=== PATIENT | female | born 1960 | race American Indian/Alaskan Native ===

== ENCOUNTER 2019-08-07 10:45 | Emergency (ER) | payer MEDICARE ==
[2019-08-07 11:07] VITALS: BP 143/80
[2019-08-07 12:03] LABS: Basophils # (Auto) 0.1 K/mm3 (0.0-0.1); Basophils % (Auto) 0.8 % (0.0-1.8); Eosinophils # (Auto) 0.1 K/mm3 (0.0-0.4); Eosinophils % (Auto) 0.9 % (0.0-4.3); Hematocrit 32.5 % (30.3-42.9); Hemoglobin 11.3 gm/dl (10.1-14.3); Lymphocytes # (Auto) 3.1 K/mm3 (1.2-5.4); Lymphocytes % (Auto) 29.1 % (13.4-35.0); Mean Corpuscular HGB Conc 35 % (30-34); Mean Corpuscular Volume 100 fl (79-97); Monocytes # (Auto) 0.5 K/mm3 (0.0-0.8); Monocytes % (Auto) 4.4 % (0.0-7.3); Platelet Count 345 K/mm3 (140-440); Red Blood Count 3.24 M/mm3 (3.65-5.03); Red Cell Distribution Width 17.5 % (13.2-15.2)
[2019-08-07 12:39] LABS: Alanine Aminotransferase 7 units/L (7-56); BUN/Creatinine Ratio 11; Blood Urea Nitrogen 9 mg/dL (7-17); Calcium 8.4 mg/dL (8.4-10.2); Hemolysis Index 16
[2019-08-07 12:40] LABS: Hepatitis B Surface Antigen Non-Reactive (Negative); Hepatitis C Virus Antibody Reactive (NonReactive)
--- NOTE | 2019-08-07 14:42 | Emergency Department Report ---
ED General Adult HPI - General Chief complaint: Psych Stated complaint: RASH Time Seen by Provider: 08/07/19 14:00 Source: patient Mode of arrival: Ambulatory Limitations: No Limitations - History of Present Illness Initial comments: Patient presents to the emergency department with a field laborer due to concerns her field laborer had all his home visit today. Patient has a history of schizophrenia follows her primary care physician at [facility] and states that her last appointment was on the of last month. Patient states that she's taken on her psychotropic medications and has to pickle processor her psoriasis medications today. The field laborer states he was concerned because last month when he saw her psoriasis was not as bad. Patient denies any homicidal or suicidal ideations and states that her voices are not telling her to do to others or herself. She states her follow-up appointment with [facility] is on the of this month. Patient denies any chest pain, shortness breath, abdominal pain, or headache. - Related Data Allergies Allergy/AdvReac Type Severity Reaction Status Date / Time No Known Allergies Allergy Unverified 08/07/19 11:07 ED Review of Systems ROS: Stated complaint: RASH Other details as noted in HPI Comment: All other systems reviewed and negative Constitutional: denies: chills, fever Eyes: denies: eye pain, eye discharge, vision change ENT: denies: ear pain, throat pain Respiratory: denies: cough, shortness of breath, wheezing Cardiovascular: denies: chest pain, palpitations Endocrine: no symptoms reported Gastrointestinal: denies: abdominal pain, nausea, diarrhea Genitourinary: denies: urgency, dysuria, discharge Musculoskeletal: denies: back pain, joint swelling, arthralgia Skin: denies: rash, lesions Neurological: denies: headache, weakness, paresthesias Psychiatric: denies: anxiety, depression Hematological/Lymphatic: denies: easy bleeding, easy bruising ED Past Medical Hx - Past Medical History Previous Medical History?: Yes Hx Liver Disease: Yes (hep c) Hx Psychiatric Treatment: Yes (schizophrenia) Additional medical history: psoriasis - Surgical History Past Surgical History?: No - Social History Smoking Status: Current Every Day Smoker Substance Use Type: None ED Physical Exam - General Limitations: No Limitations General appearance: alert, in no apparent distress - Head Head exam: Present: atraumatic, normocephalic - Eye Eye exam: Present: normal appearance, PERRL, EOMI - ENT ENT exam: Present: mucous membranes moist - Neck Neck exam: Present: normal inspection - Respiratory Respiratory exam: Present: normal lung sounds bilaterally. Absent: respiratory distress - Cardiovascular Cardiovascular Exam: Present: regular rate, normal rhythm. Absent: systolic murmur, diastolic murmur, rubs, gallop - GI/Abdominal GI/Abdominal exam: Present: soft, normal bowel sounds. Absent: distended, tenderness - Extremities Exam Extremities exam: Present: normal inspection - Back Exam Back exam: Present: normal inspection - Neurological Exam Neurological exam: Present: alert, oriented X3, CN II-XII intact. Absent: motor sensory deficit - Psychiatric Psychiatric exam: Present: normal affect, normal mood. Absent: homicidal ideation, suicidal ideation - Skin Skin exam: Present: warm, dry, intact, normal color, rash (psoriatic rash) ED Course Vital Signs 08/07/19 11:00 Temperature 98 F Pulse Rate 112 H Respiratory 18 Rate Blood Pressure 143/80 O2 Sat by Pulse 100 Oximetry ED Medical Decision Making - Lab Data Result diagrams: 08/07/19 11:29 08/07/19 11:29 Lab Results 08/07/19 08/07/19 08/07/19 Range/Units 11:29 11:29 11:29 WBC (4.5-11.0) K/mm3 RBC (3.65-5.03) M/mm3 Hgb (10.1-14.3) gm/dl Hct (30.3-42.9) % MCV (79-97) fl MCH (28-32) pg MCHC (30-34) % RDW (13.2-15.2) % Plt Count (140-440) K/mm3 Lymph % (Auto) (13.4-35.0) % Baker % (Auto) (0.0-7.3) % Eos % (Auto) (0.0-4.3) % Baso % (Auto) (0.0-1.8) % Lymph # (1.2-5.4) K/mm3 Baker # (0.0-0.8) K/mm3 Eos # (0.0-0.4) K/mm3 Baso # (0.0-0.1) K/mm3 Seg Neutrophils % (40.0-70.0) % Seg Neutrophils # (1.8-7.7) K/mm3 Sodium (137-145) mmol/L Potassium (3.6-5.0) mmol/L Chloride (98-107) mmol/L Carbon Dioxide (22-30) mmol/L Anion Gap mmol/L BUN (7-17) mg/dL Creatinine (0.7-1.2) mg/dL Estimated GFR ml/min BUN/Creatinine Ratio % Glucose (65-100) mg/dL Calcium (8.4-10.2) mg/dL Total Bilirubin (0.1-1.2) mg/dL AST (5-40) units/L ALT (7-56) units/L Alkaline Phosphatase (35-129) units/L Total Protein (6.3-8.2) g/dL Albumin (3.9-5) g/dL Albumin/Globulin Ratio % Salicylates < 0.3 L (2.8-20.0) mg/dL Acetaminophen < 5.0 L (10.0-30.0) ug/mL Plasma/Serum Alcohol < 0.01 (0-0.07) % Hepatitis A IgM Ab (NonReactive) Hep Bs Antigen (Negative) Hep B Core IgM Ab (NonReactive) Hepatitis C Antibody (NonReactive) 08/07/19 08/07/19 08/07/19 Range/Units 11:29 11:29 11:29 WBC 10.8 (4.5-11.0) K/mm3 RBC 3.24 L (3.65-5.03) M/mm3 Hgb 11.3 (10.1-14.3) gm/dl Hct 32.5 (30.3-42.9) % MCV 100 H (79-97) fl MCH 35 H (28-32) pg MCHC 35 H (30-34) % RDW 17.5 H (13.2-15.2) % Plt Count 345 (140-440) K/mm3 Lymph % (Auto) 29.1 (13.4-35.0) % Baker % (Auto) 4.4 (0.0-7.3) % Eos % (Auto) 0.9 (0.0-4.3) % Baso % (Auto) 0.8 (0.0-1.8) % Lymph # 3.1 (1.2-5.4) K/mm3 Baker # 0.5 (0.0-0.8) K/mm3 Eos # 0.1 (0.0-0.4) K/mm3 Baso # 0.1 (0.0-0.1) K/mm3 Seg Neutrophils % 64.8 (40.0-70.0) % Seg Neutrophils # 7.0 (1.8-7.7) K/mm3 Sodium 139 (137-145) mmol/L Potassium 4.0 (3.6-5.0) mmol/L Chloride 106.4 (98-107) mmol/L Carbon Dioxide 20 L (22-30) mmol/L Anion Gap 17 mmol/L BUN 9 (7-17) mg/dL Creatinine 0.8 (0.7-1.2) mg/dL Estimated GFR > 60 ml/min BUN/Creatinine Ratio 11 % Glucose 157 H (65-100) mg/dL Calcium 8.4 (8.4-10.2) mg/dL Total Bilirubin 0.20 (0.1-1.2) mg/dL AST 15 (5-40) units/L ALT 7 (7-56) units/L Alkaline Phosphatase 78 (35-129) units/L Total Protein 5.9 L (6.3-8.2) g/dL Albumin 3.0 L (3.9-5) g/dL Albumin/Globulin Ratio 1.0 % Salicylates (2.8-20.0) mg/dL Acetaminophen (10.0-30.0) ug/mL Plasma/Serum Alcohol (0-0.07) % Hepatitis A IgM Ab Non-reactive (NonReactive) Hep Bs Antigen Non-reactive (Negative) Hep B Core IgM Ab Non-reactive (NonReactive) Hepatitis C Antibody Reactive A (NonReactive) - Medical Decision Making results were discussed with patient Please follow up with her primary care physician as discussed Critical care attestation.: If time is entered above; I have spent that time in minutes in the direct care of this critically ill patient, excluding procedure time. ED Disposition Clinical Impression: Psoriasis Disposition: DC-01 TO HOME OR SELFCARE Is pt being admited?: No Does the pt Need Aspirin: No Condition: Stable Instructions: Psoriasis (ED) Additional Instructions: return if worse Referrals: PRIMARY CARE, [Primary Care Provider] - 3-5 Days [facility] [Provider Group] - 3-5 Days Time of Disposition: 14:41
== END 2019-08-07 14:54 | disposition home or self-care (01) ==
LOC: ED 10:45
DX: L40.9 Psoriasis, unspecified (principal); F20.9 Schizophrenia, unspecified; F17.200 Nicotine dependence, unspecified, uncomplicated
CPT/HCPCS: 36415; 80053; 80074; 80320; 85025; 99283; G0480

== ENCOUNTER 2020-01-02 16:51 | Emergency (ER) | payer MEDICARE ==
[2020-01-02 18:49] VITALS: BP 142/74
--- NOTE | 2020-01-02 20:59 | Emergency Department Report ---
- General Chief complaint: Skin Rash Stated complaint: MED REFILL Time Seen by Provider: 01/02/20 20:05 Source: patient, EMS Mode of arrival: Stretcher Limitations: No Limitations - History of Present Illness Initial comments: Patient is a 59-year-old female presents emergency room with complaints of psoriasis. She states that it became worse over the last 3 years but has been b othering her more over the last week. She has associated itching. She has flaking of the skin. Patient has not been using anything for her psoriasis. She states that she only sees mental health personnel for bipolar and takes Seroquel. She denies any suicidal or homicidal thoughts. She denies any allergies to medications. She denies any other past medical history. She does not report any fever, nausea, vomiting, diarrhea, chest pain, shortness of breath, throat swelling. - Related Data Previous Rx's Medication Instructions Recorded Last Taken Type Hydrocortisone [Hydrocortisone 1 gm TP TID #80 oint...g. 01/02/20 Unknown Rx 2.5% OINT] Prednisone [predniSONE 10 mg 10 mg PO .TAPER #1 tab.ds.pk 01/02/20 Unknown Rx (6-Day Pack, 21 Tabs)] Allergies Allergy/AdvReac Type Severity Reaction Status Date / Time No Known Allergies Allergy Unverified 08/07/19 11:07 Abscess Boil HPI - HPI Chief Complaint: Skin Rash Stated Complaint: MED REFILL Time Seen by Provider: 01/02/20 20:05 Home Medications: Previous Rx's Medication Instructions Recorded Last Taken Type Hydrocortisone [Hydrocortisone 1 gm TP TID #80 oint...g. 01/02/20 Unknown Rx 2.5% OINT] Prednisone [predniSONE 10 mg 10 mg PO .TAPER #1 tab.ds.pk 01/02/20 Unknown Rx (6-Day Pack, 21 Tabs)] Allergies/Adverse Reactions: Allergies Allergy/AdvReac Type Severity Reaction Status Date / Time No Known Allergies Allergy Unverified 08/07/19 11:07 ED Review of Systems ROS: Stated complaint: MED REFILL Other details as noted in HPI Comment: All other systems reviewed and negative ED Past Medical Hx - Past Medical History Previous Medical History?: Yes Hx Liver Disease: Yes (hep c) Hx Psychiatric Treatment: Yes (schizophrenia) Additional medical history: psoriasis - Surgical History Past Surgical History?: No - Social History Smoking Status: Current Every Day Smoker Substance Use Type: None - Medications Home Medications: Home Medications Medication Instructions Recorded Confirmed Last Taken Type Hydrocortisone [Hydrocortisone 1 gm TP TID #80 oint...g. 01/02/20 Unknown Rx 2.5% OINT] Prednisone [predniSONE 10 mg 10 mg PO .TAPER #1 tab.ds.pk 01/02/20 Unknown Rx (6-Day Pack, 21 Tabs)] ED Physical Exam - General Limitations: No Limitations General appearance: alert, in no apparent distress - Head Head exam: Present: atraumatic, normocephalic - Eye Eye exam: Present: normal appearance - ENT ENT exam: Present: mucous membranes moist - Neurological Exam Neurological exam: Present: alert, oriented X3 - Psychiatric Psychiatric exam: Present: normal affect, normal mood - Skin Skin exam: Present: warm, dry, other (Lichenified skin, areas of flaking, psoriatic plaques present diffusely to the skin, no blisters, negative Nikolsky sign, no necrosis, no active drainage ) ED Course Vital Signs 01/02/20 18:41 Temperature 97.5 F L Pulse Rate 96 H Respiratory 20 Rate Blood Pressure 142/74 O2 Sat by Pulse 100 Oximetry ED Medical Decision Making - Medical Decision Making Patient is a 59-year-old female presents emergency room with complaints of psoriasis. She states that it became worse over the last 3 years but has been bothering her more over the last week. She has associated itching. She has flaking of the skin. Patient has not been using anything for her psoriasis. She states that she only sees mental health personnel for bipolar and takes Seroquel. She denies any suicidal or homicidal thoughts. She denies any allergies to medications. She denies any other past medical history. She does not report any fever, nausea, vomiting, diarrhea, chest pain, shortness of breath, throat swelling. vss. on exam: non toxic appearing, Lichenified skin, areas of flaking, psoriatic plaques present diffusely to the skin, no blisters, negative Nikolsky sign, no necrosis, no active drainage. no signs of TEN or SJS. appears consistent with psoriasis. Dr. Deion Rodriguez, ER attending evaluated pt and recommended medrol dose pack and eucerin and steroid ointment. pt given prescription for prednisone and hydrocortisone ointment. advised pt to please use medication as prescribed. Please also use Eucerin cream. Please follow-up with a acute care occupational therapist. It is very important that you follow-up with a acute care occupational therapist. Return to the emergency room for any new or worsening symptoms. - Differential Diagnosis contact derm, irritant derm, psoriasis, SJS, lupus, pityriasis Critical care attestation.: If time is entered above; I have spent that time in minutes in the direct care of this critically ill patient, excluding procedure time. ED Disposition Clinical Impression: Psoriasis Disposition: DC- TO HOME OR SELFCARE Is pt being admited?: No Does the pt Need Aspirin: No Condition: Stable Instructions: Psoriasis (ED) Additional Instructions: Please use medication as prescribed. Please also use Eucerin cream. Please follow-up with a acute care occupational therapist. It is very important that you follow-up with a acute care occupational therapist. Return to the emergency room for any new or worsening symptoms. [facility] [address] [place] [address] Prescriptions: Hydrocortisone [Hydrocortisone 2.5% OINT] 1 gm TP TID #80 oint...g. Prednisone [predniSONE 10 mg (6-Day Pack, 21 Tabs)] 10 mg PO .TAPER #1 tab.ds.pk Referrals: MITZI CLARKE MD [Staff Physician] - 2-3 Days CHRISTOPHER SHEPARD MD [Staff Physician] - 2-3 Days Time of Disposition: 20:58 Print Language: GREEK
--- NOTE | 2020-01-02 20:59 | Event Note ---
Face to Face: For this encounter I have reviewed the PA/PRODUCT INSPECTION COORDINATOR documentation, treatment plan, medical decision making, and I had face to face time with this patient. Patient with a negative Niklosky's sign. Patient is nontoxic in her appearance. Patient be given dermatology follow-up and started on steroid therapy.
== END 2020-01-02 21:10 | disposition home or self-care (01) ==
LOC: ED 16:51
DX: L40.9 Psoriasis, unspecified (principal); K76.9 Liver disease, unspecified; F20.9 Schizophrenia, unspecified; F17.200 Nicotine dependence, unspecified, uncomplicated; Z79.899 Other long term (current) drug therapy